=== PATIENT | male | born 1945 | race Caucasian/White ===

== ENCOUNTER 2017-04-12 13:51 | Emergency (ER) | payer MEDICARE, BC ==
[2017-04-12 14:03] VITALS: BP 134/75
--- NOTE | 2017-04-12 14:22 | UC ---
Lower Extremity/Ankle HPI - HPI Summary HPI Summary: 71 y/o male presents to the urgent care c/o of RT ankle pain w/ swelling for the past month. Pt reports pain is on and off, specially at the end of the day. Pain is 4/10 now. It is constant w/o any radiation. Pt hasn't take anything to alleviate symptoms. He is able to ambulate w/o any difficulty and bear weight. Pt denies fever, numbness, SOB, chest pain, N/V/D, urinary symptoms. No other complains - History of Current Complaint Hx Obtained From: Patient Onset/Duration: Gradual Onset, Lasting Weeks - x 1 month Severity Initially: Mild Severity Currently: Moderate Pain Intensity: 4 Pain Scale Used: 0-10 Numeric Aggravating Factor(s): Standing - long periods of time Alleviating Factor(s): Rest Able to Bear Weight: Yes - Risk Factors Gout Risk Factors: Age Over 40, Hypertension, Hyperlipidemia, Obesity DVT Risk Factors: Negative Septic Arthritis Risk Factor: Negative <Echo Pappas - Last Filed: 04/12/17 15:22> <Sarah Campbell - Last Filed: 04/12/17 15:46> - History of Current Complaint Chief Complaint: UCLowerExtremity Stated Complaint: ANKLE PAIN Time Seen by Provider: 04/12/17 14:06 - Allergies/Home Medications Allergies/Adverse Reactions: Allergies Allergy/AdvReac Type Severity Reaction Status Date / Time No Known Allergies Allergy Verified 02/21/13 16:04 Home Medications: Home Medications Losartan TAB* [Cozaar TAB*] 25 mg PO DAILY 04/12/17 [History Confirmed 04/12/17] Simvastatin TAB(NF) [Zocor(NF)] 10 mg PO DAILY 04/12/17 [History Confirmed 04/12] PMH/Surg Hx/FS Hx/Imm Hx Previously Healthy: Yes Endocrine History: Dyslipidemia Cardiovascular History: Hypertension - Surgical History Surgical History: None Surgery Procedure, Year, and Place: 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 Read by dr reese, recommends ct of elbow instead..mri is NOT approved due to metal * - Family History Known Family History: Positive: Hypertension, Diabetes - Social History Occupation: Retired Lives: With Family Alcohol Use: Rare Substance Use Type: Excessive Caffeine Smoking Status (MU): Never Smoked Tobacco <Echo Pappas Last Filed: 04/12/17 15:22> Review of Systems Constitutional: Negative Skin: Negative Eyes: Negative ENT: Negative Respiratory: Negative Cardiovascular: Negative Gastrointestinal: Negative Genitourinary: Negative Motor: Negative Neurovascular: Negative Musculoskeletal: Other: - RT ankle pain x 1 month Neurological: Negative Psychological: Negative All Other Systems Reviewed And Are Negative: Yes <Becerril-ChoudharyEcho morrison Last Filed: 04/12/17 15:22> Physical Exam Triage Information Reviewed: Yes Appearance: Well-Appearing, No Pain Distress, Well-Nourished, Obese Vital Signs: Initial Vital Signs Temp 98.2 F 04/12/17 13:59 Pulse 68 04/12/17 13:59 Resp 14 04/12/17 13:59 BP 134/75 04/12/17 13:59 Pulse Ox 99 04/12/17 13:59 Eye Exam: Normal Eyes: Positive: Conjunctiva Clear - PERRLA, EOMI, fundi grossly normal ENT Exam: Normal ENT: Positive: Normal ENT inspection, Hearing grossly normal, Pharynx normal, TMs normal Dental Exam: Normal Neck exam: Normal Neck: Positive: Supple, Nontender, No Lymphadenopathy Respiratory Exam: Normal Respiratory: Positive: Chest non-tender, Lungs clear, Normal breath sounds Cardiovascular Exam: Normal Cardiovascular: Positive: RRR, No Murmur, Pulses Normal, Brisk Capillary Refill Abdominal Exam: Normal Abdomen Description: Positive: Nontender, No Organomegaly, Soft. Negative: CVA Tenderness (R), CVA Tenderness (L) Bowel Sounds: Positive: Present Musculoskeletal: Positive: Strength Intact, ROM Intact, Other: - Point tenderness at the Rt medial malleolus with mild edema , FROM of RT ankle, postive pulses, sensation and capillary refill intact. No erythema observed. Neurological Exam: Normal Psychological Exam: Normal Skin Exam: Normal <Echo Pappas Filed: 04/12/17 15:22> Vital Signs: Initial Vital Signs Temp 98.2 F 04/12/17 13:59 Pulse 68 04/12/17 13:59 Resp 14 04/12/17 13:59 BP 134/75 04/12/17 13:59 Pulse Ox 99 04/12/17 13:59 <Sarah Campbell - Last Filed: 04/12/17 15:46> Lower Extremity Course/Dx - Course Course Of Treatment: 71 y/o male presents to the urgent care c/o of RT ankle pain w/ swelling for the past month. Pt reports pain is on and off, specially at the end of the day. Pain is 4/10 now. It is constant w/o any radiation. Pt hasn't take anything to alleviate symptoms. He is able to ambulate w/o any difficulty and bear weight. Pt denies fever, numbness, SOB, chest pain, N/V/D, urinary symptoms.Hx obtained. PE abnormal findings: Point tenderness at the Rt medial malleolus with mild edema , FROM of RT ankle, postive pulses, sensation and capillary refill intact. No erythema observed. RT ankle X-ray ordered: impression: No acute bony structures. Pt RT ankle immobilized with liliana bandage and RX Ibuprofen prn to alleviate symptoms of swelling and pain. Advised RICE and avoid long periods of standing or lifting heavy equipment, and increase fluid intake and decrease salt in diet . Pt advised if symptoms do not improve or worsen to f/u with his PCP in 1 week. Pt understood and agreed and left the clinic ambulating. - Differential Dx/Diagnosis Differential Diagnosis/HQI/PQRI: Bursitis, Contusion, Gout, Phlebitis, Sprain, Strain, Tendonitis Provider Diagnoses: 1-RT ankle arthralgia <Echo Pappas - Last Filed: 04/12/17 15:22> Discharge <Echo Pappas - Last Filed: 04/12/17 15:22> <Sarah Campbell - Last Filed: 04/12/17 15:46> - Discharge Plan Condition: Stable Disposition: HOME Prescriptions: Ibuprofen TAB* [Motrin TAB* 800 MG] 800 mg PO Q6H #30 tab Patient Education Materials: Arthralgia (ED) Referrals: Farhad Damon MD [Primary Care Provider] - 1 Week Additional Instructions: Please take medication after meals as directed. Apply Ice and rest, elevate your foot at night time, avoid long periods of standing or lifting heavy equipment. Increase fluid intake. If symptpoms do not resolve or worsen please f/u with your PCP in 1 week. Attestation Statement User Type: Provider - I was available for consult. This patient was seen by the CLIVE. The patient was not presented to, seen by, or examined by me. -Vika <Sarah Campbell - Last Filed: 04/12/17 15:46>
--- NOTE | 2017-04-12 14:44 | RAD ---
INDICATION: Right ankle pain COMPARISON: None TECHNIQUE: AP, lateral, and oblique views were obtained. FINDINGS: The bony structures, joint spaces, and soft tissues are normal for age. IMPRESSION: NO ACUTE BONY FINDINGS.
== END 2017-04-12 15:07 | disposition home or self-care (01) ==
LOC: UCEAST 13:51
DX: M25.571 Pain in right ankle and joints of right foot (principal); I10 Essential (primary) hypertension; E78.5 Hyperlipidemia, unspecified
CPT/HCPCS: 99212; G0463

== ENCOUNTER 2019-01-11 08:47 | Emergency (ER) | payer MEDICARE, BC ==
[2019-01-11 08:56] VITALS: BP 142/90
--- NOTE | 2019-01-11 10:07 | UC ---
Head Injury HPI - HPI Summary HPI Summary: 73 yo male presents with head injury. He tells me that 1 week ago he was working on his vehicle carburetor and pulling at it very hard when it dislodged and he hit himself above his left eye. Had immediate severe pain. No LOC or laceration. Since that time has had pain in the area that radiates to his superior forehead. Has not taken anything OTC for his discomfort as he says he "does not like taking medications". Denies vision changes, dizziness, SOB, chest pain, n/v, numbness, or weakness. - History Of Current Complaint Chief Complaint: UCHeadInjury Stated Complaint: HEAD INJURY Hx Obtained From: Patient Onset/Duration: Sudden Onset Severity Currently: Moderate Severity Initially: Severe Pain Intensity: 5 Pain Scale Used: 0-10 Numeric - Allergies/Home Medications Allergies/Adverse Reactions: Allergies Allergy/AdvReac Type Severity Reaction Status Date / Time No Known Allergies Allergy Verified 08/11/18 10:33 Home Medications: Home Medications Aspirin 81 mg CHEW TAB* 1 tab PO DAILY 01/11/19 [History Confirmed 01/11/19] PMH/Surg Hx/FS Hx/Imm Hx Endocrine History: Dyslipidemia Cardiovascular History: Cardiac Disease - Surgical History Surgical History: Yes Surgery Procedure, Year, and Place: 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 Read by dr reese, recommends ct of elbow instead..mri is NOT approved due to metal * aortic stent placed - Family History Known Family History: Positive: Hypertension, Diabetes - Social History Occupation: Retired Lives: With Family Alcohol Use: Rare Substance Use Type: Excessive Caffeine Smoking Status (MU): Never Smoked Tobacco Review of Systems All Other Systems Reviewed And Are Negative: Yes Constitutional: Positive: Negative Skin: Positive: Negative Respiratory: Positive: Negative Cardiovascular: Positive: Negative Neurovascular: Positive: Negative Musculoskeletal: Positive: Other: - Left forehead pain Neurological: Positive: Negative Psychological: Positive: Negative Physical Exam - Summary Physical Exam Summary: GENERAL: NAD. WDWN. No pain distress. SKIN: No rashes, sores, lesions, or open wounds. HEENT: Head: AT/NC Eyes: EOM intact without pain. PERRLA. TTP at LEFT supratrochlear notch without step off, edema, or ecchymosis. Ears: Hearing grossly normal. TMs intact, no bulging, erythema, or edema. Nose: Nasal mucosa pink and moist. NTTP maxillary and frontal sinus. NECK: Supple. Nontender. No lymphadenopathy. CHEST: CTAB. No r/r/w. No accessory muscle use. Breathing comfortably and in no distress. CV: RRR. Without m/r/g. Pulses intact. Cap refill <2seconds NEURO: A&Ox3. 3 word recall, remote, recent memory, ability to follow 2-step directions, and attention intact. CN: II: Peripheral laura intact. Vision normal. III, IV, : EOMI. No nystagmus. PERRLA. V: Sensations intact and symmetric. Opens mouth and clenches teeth. VII: No facial asymmetry. Forehead wrinkles. Grins, shuts eyes, frowns, puffs cheeks. VIII: Hearing intact to finger rub. IX, X: Swallows and coughs. Uvula midline. XI: Shrugs shoulders. Turns head against resistance. XII: No tongue deviation [id number] are intact. Gait with normal base. Romberg: maintains balance, no pronator drift. Normal speech. No facial drooping. PSYCH: Age appropriate behavior. Triage Information Reviewed: Yes Vital Signs: Initial Vital Signs Temp 97.6 F 01/11/19 08:50 Pulse 73 01/11/19 08:50 Resp 16 01/11/19 08:50 BP 142/90 01/11/19 08:50 Pulse Ox 99 01/11/19 08:50 Vital Signs Reviewed: Yes Head Injury Course/Dx - Course Course Of Treatment: I suspect pt injured the supratrochlear nerve that is causing his discomfort. He is very concerned today about an "internal injury" such as a bleed, thus is requesting imaging, despite my conversation with him being very low risk. CT: IMPRESSION: NO FACIAL FRACTURE. CT: IMPRESSION: NO ACUTE INTRACRANIAL PATHOLOGY. Discussed with pt and advised to ice the area and take tylenol for discomfort. I suspect his symptoms will improve with time, but advised to be rechecked if symptoms do not improve or if they worsen. - Differential Dx/Diagnosis Provider Diagnosis: Orbital pain Discharge - Sign-Out/Discharge Documenting (check all that apply): Patient Departure All imaging exams completed and their final reports reviewed: Yes - Discharge Plan Condition: Stable Disposition: HOME Patient Education Materials: Head Injury (ED) Referrals: Farhad Damon MD [Primary Care Provider] - Additional Instructions: If you develop a fever, shortness of breath, chest pain, new or worsening symptoms - please call your PCP or go to the ED. Your blood pressure was high at todays visit. Please see your primary provider within 4 weeks for recheck and re-evaluation. Your imaging was normal today and shows no fracture or internal injury/bleeding. 1) Apply ice to the area to decrease pain 2) May take tylenol as directed for discomfort - I suspect this discomfort will improve with time - Billing Disposition and Condition Condition: STABLE Disposition: Home
== END 2019-01-11 10:42 | disposition home or self-care (01) ==
LOC: UCEAST 08:47
DX: H57.12 Ocular pain, left eye (principal); S05.92XA Unspecified injury of left eye and orbit, initial encounter; W20.8XXA Other cause of strike by thrown, projected or falling object, initial encounter; Y92.9 Unspecified place or not applicable; E78.5 Hyperlipidemia, unspecified; I51.9 Heart disease, unspecified; Z79.82 Long term (current) use of aspirin
CPT/HCPCS: 70450; 70486; 99211; G0463